=== PATIENT | female | born 1965 | race Caucasian/White ===

== ENCOUNTER 2016-11-27 12:38 | Emergency (ER) | payer OTHER ==
[2016-11-27 13:17] VITALS: TEMP 98.7; BMI 34.3
--- NOTE | 2016-11-27 13:38 | PDOC ---
History of Present Illness - General History Source: Patient, Parent(s) Exam Limitations: Clinical Condition - History of Present Illness Initial Comments: 11/27/16 14:32 The patient is a 51 year old female with significant past medical history of hypertension, COPD, CVA in 11/2014, and depression who presents to the emergency department with altered mental status since this morning. The patients mother states that she woke up with slurred speech and altered mental status. The mother states that she has never acted like this before. The patient states she has generalized weakness. The patient is also complaining of some lower abdominal pain for the last few days. Her pain is dull and does not radiate and is localized to the suprapubic region. She reports associated dysuria and frequency but denies any hematuria. The patient denies any nausea, vomiting, or diarrhea. She denies any recent illness, fevers, or chills. The patients mother states she has a ?questionable history of polysubstance abuse. <Patti Molina - Last Filed: 11/27/16 14:31> <Olvin Carter - Last Filed: 11/27/16 18:01> - General Chief Complaint: CVA/TIA Stated Complaint: slurred speech x 4 days Time Seen by Provider: 11/27/16 13:38 Past History <Patti Molina - Last Filed: 11/27/16 14:31> - Past Medical History CVA: Yes (hemorrhagic stroke speech loss, 11/26 almost fully recovered) COPD: Yes HTN: Yes Psychiatric Problems: Yes (depression) Other medical history: fell at work herniation cervica spine 2000, cervical sx 2009 - Psycho/Social/Smoking Cessation Hx Anxiety: No Suicidal Ideation: No Smoking History: Current every day smoker Have you smoked in the past 12 months: No Number of Cigarettes Smoked Daily: 20 Information on smoking cessation initiated: No Hx Alcohol Use: No Drug/Substance Use Hx: Yes (marijuana) Substance Use Type: Marijuana <Olvin Carter - Last Filed: 11/27/16 18:01> - Past Medical History Allergies/Adverse Reactions: Allergies Allergy/AdvReac Type Severity Reaction Status Date / Time No Known Allergies Allergy Verified 11/27/16 13:17 Review of Systems - Review of Systems Able to Perform ROS?: Yes Comments:: 11/27/16 14:32 GENERAL/CONSTITUTIONAL: +Weakness. No fever or chills. HEAD, EYES, EARS, NOSE AND THROAT: No change in vision. No ear pain or discharge. No sore throat. CARDIOVASCULAR: No chest pain or shortness of breath. RESPIRATORY: No cough, wheezing, or hemoptysis. GASTROINTESTINAL: +Abdominal pain. No nausea, vomiting, diarrhea or constipation. GENITOURINARY: +Dysuria, +frequency. No hematuria or change in urination. MUSCULOSKELETAL: No joint or muscle swelling or pain. No neck or back pain. SKIN: No rash NEUROLOGIC: No headache, vertigo, loss of consciousness, or change in strength/ sensation. ENDOCRINE: No increased thirst. No abnormal weight change. HEMATOLOGIC/LYMPHATIC: No anemia, easy bleeding, or history of blood clots. ALLERGIC/IMMUNOLOGIC: No hives or skin allergy. <Patti Molina - Last Filed: 11/27/16 14:31> *Physical Exam - Vital Signs Last Vital Signs Temp Pulse Resp BP Pulse Ox 98.7 F 91 H 18 110/96 95 11/27/16 12:38 11/27/16 12:38 11/27/16 12:38 11/27/16 12:38 11/27/16 12:38 - Physical Exam Comments: 11/27/16 14:32 GENERAL: +Somnolent but wakes to her name and physical stimuli. In no acute distress, answers yes or no questions. HEAD: No signs of trauma EYES: PERRLA, EOMI, sclera anicteric, conjunctiva clear ENT: Auricles normal inspection, hearing grossly normal, nares patent, oropharynx clear without exudates. Moist mucosa NECK: Normal ROM, supple, no lymphadenopathy, JVD, or masses LUNGS: Breath sounds equal, clear to auscultation bilaterally. No wheezes, and no crackles HEART: Regular rate and rhythm, normal S1 and S2, no murmurs, rubs or gallops ABDOMEN: +Mild tenderness to palpation in the suprapubic region. Otherwise soft , normoactive bowel sounds. No guarding, no rebound. No masses EXTREMITIES: Normal range of motion, no edema. No clubbing or cyanosis. No cords, erythema, or tenderness NEUROLOGICAL: Cranial nerves II through XII grossly intact. 2/5 strength in the lower extremities bilaterally, 4/5 strength in the upper extremities bilaterally. [place] Boss strength is 4/5 bilaterally. SKIN: Warm, Dry, normal turgor, no rashes or lesions noted. <Patti Molina - Last Filed: 11/27/16 14:31> - Vital Signs Last Vital Signs Temp Pulse Resp BP Pulse Ox 98.7 F 91 H 18 110/96 95 11/27/16 12:38 11/27/16 12:38 11/27/16 12:38 11/27/16 12:38 11/27/16 12:38 <Olvin Carter - Last Filed: 11/27/16 18:01> Heart Score/ECG Review - ECG Intrepretation Comment:: 11/27/16 14:32 Vent rate: 89 bpm MD interval: 148 ms QRS interval: 86 ms Normal sinus rhythm ST & T wave abnormality, consider anterolateral ischemia Prolonged QT <Patti Molina - Last Filed: 11/27/16 14:31> ED Treatment Course - LABORATORY CBC & Chemistry Diagram: 11/27/16 14:02 11/27/16 14:02 - Medications Given in the ED: ED Medications Discontinued Medications Generic Name Dose Route Start Last Admin Trade Name Julienq PRN Reason Stop Dose Admin Naloxone HCl 2 mg 11/27/16 13:55 11/27/16 14:17 Narcan - IVPUSH 11/27/16 13:56 2 mg ONCE ONE Administration <JessePatti - Last Filed: 11/27/16 14:31> - LABORATORY CBC & Chemistry Diagram: 11/27/16 14:02 11/27/16 14:02 <Olvin Carter - Last Filed: 11/27/16 18:01> *DC/Admit/Observation/Transfer - Attestations Scribe Attestion: 11/27/16 14:33 Documentation prepared by Patti Molina, acting as medical surgical tech for Olvin Carter DO. <JessePatti - Last Filed: 11/27/16 14:31> - Discharge Dispostion Admit: No - Attestations Physician Attestion: 11/27/16 13:38 I, Dr. Olvin Carter, attest that this document has been prepared under my direction and personally reviewed by me in its entirety. I further attest, that it accurately reflects all work, treatment, procedures and medical decision -making performed by me. <Olvin Carter - Last Filed: 11/27/16 18:01> Diagnosis at time of Disposition: Hypersomnia - Discharge Dispostion Disposition: HOME Condition at time of disposition: Good - Referrals Referrals: Tanya Gay MD [Primary Care Provider] - - Patient Instructions Printed Discharge Instructions: DI for Fatigue Additional Instructions: Lupe- All of your test results were normal...... I am not exactly sure why you are so sleepy. Follow up with your regular doctor next week. Best- Dr. Olvin Carter
[2016-11-27] MEDS ORDERED: NALOXONE HCL 0.4 MG/ML VIAL IVPUSH ONE (13:55)
[2016-11-27] MEDS ORDERED: NALOXONE HCL 0.4 MG/ML VIAL ONE ×2 (14:11→14:14)
[2016-11-27 14:17] LABS: BASOPHIL 0.3 % (0-2.0); EOSINOPHIL 0.4 % (0-4.5); MCH 32.1 pg (25.7-33.7); MEAN CELL VOLUME 97.5 fl (80-96); MEAN PLT VOLUME 9.3 fl (7.5-11.1); NEUTROPHILS 76.8 % (42.8-82.8); PLATELET COUNT 225 K/MM3 (134-434); RDW 12.9 % (11.6-15.6); WHITE BLOOD COUNT 9.4 K/mm3 (4.0-10.0)
[2016-11-27 14:30] LABS: INR 0.94 (0.82-1.09); PROTHROMBIN TIME (PATIENT) 10.3 SEC (9.98-11.88)
[2016-11-27 15:02] LABS: BILIRUBIN,TOTAL 0.4 mg/dL (0.2-1.0); CALCIUM 8.9 mg/dL (8.5-10.1); TOT PROT 7.5 g/dl (6.4-8.2)
--- NOTE | 2016-11-27 15:59 | EKG ---
Test Reason : Blood Pressure : / mmHG Vent. Rate : 089 BPM Atrial Rate : 089 BPM P-R Int : 148 ms QRS Dur : 086 ms QT Int : 404 ms P-R-T Axes : 011 012 -18 degrees QTc Int : 491 ms NORMAL SINUS RHYTHM PROLONGED QT ABNORMAL ECG NO PREVIOUS ECGS AVAILABLE Confirmed by VINOD ROB MD ([id number]) on 11/27/2016 3:58:51 PM Referred By: Confirmed By:VINOD ROB MD
[2016-11-27 18:39] VITALS: BP 110/70; PULSE 90
--- NOTE | 2016-12-01 16:24 | EKG ---
Test Reason : Blood Pressure : / mmHG Vent. Rate : 092 BPM Atrial Rate : 092 BPM P-R Int : 152 ms QRS Dur : 084 ms QT Int : 422 ms P-R-T Axes : 017 046 -13 degrees QTc Int : 521 ms NORMAL SINUS RHYTHM T WAVE ABNORMALITY, CONSIDER ANTERIOR ISCHEMIA PROLONGED QT ABNORMAL ECG WHEN COMPARED WITH ECG OF 27-NOV-2016 13:07, NO SIGNIFICANT CHANGE WAS FOUND Confirmed by KIKE PINZON MD ([id number]) on 12/01/2016 4:23:57 PM Referred By: Confirmed By:KIKE PINZON MD
== END 2016-11-27 18:45 | disposition home or self-care (01) ==
LOC: JER 12:38
PROC: 3E033GC Introduction of Other Therapeutic Substance into Peripheral Vein, Percutaneous Approach (ICD-10-PCS; principal; 2016-11-27)
DX: G47.10 Hypersomnia, unspecified (principal); F51.9 Sleep disorder not due to a substance or known physiological condition, unspecified; I10 Essential (primary) hypertension; J44.9 Chronic obstructive pulmonary disease, unspecified; F32.9 Major depressive disorder, single episode, unspecified; Z86.73 Personal history of transient ischemic attack (TIA), and cerebral infarction without residual deficits; F17.210 Nicotine dependence, cigarettes, uncomplicated
CPT/HCPCS: 36415; 70450-TC; 80053; 80307; 85025; 85610; 93005; 93010; 99281-25